=== PATIENT | female | born 1985 | race Two or more races ===

== ENCOUNTER 2017-01-07 22:53 | Observation (INO) | payer OTHER ==
[2017-01-07 23:33] LABS: URINE MUCUS NONE SEEN (Up to 25%)
[2017-01-07 23:36] LABS: BASOPHILS 0.5 % (0.0-2.0); EOSINOPHILS# 0.2 X 10^3uL (0.0-0.4); HEMATOCRIT 39.4 % (36.0-48.0); HEMOGLOBIN 12.7 g/dL (12.0-16.0); LYMPHOCYTES 27.8 % (20.0-40.0); LYMPHOCYTES# 2.4 X 10^3uL (0.8-3.8); MEAN CELL VOLUME 77.9 fL (80.0-100.0); MEAN CORPUS. HGB CONCENTRATION 32.2 g/dL (32.0-36.0); MONOCYTES 5.9 % (2.0-10.0); MONOCYTES# 0.5 X 10^3uL (0.2-1.0); NEUTROPHILS 63.8 % (54.0-75.0); NEUTROPHILS# 5.5 X 10^3uL (2.6-6.7); PLATELET COUNT 383 X 10^3uL (130-440); RED BLOOD COUNT 5.07 X 10^6uL (4.20-6.10); RED CELL DISTRIBUTION WIDTH 13.8 % (11.5-14.5); WHITE BLOOD COUNT 8.6 X 10^3uL (3.9-10.7)
[2017-01-07 23:42] LABS: ALBUMIN 4.1 g/dL (3.5-5.0); ALKALINE PHOSPHATASE 70 U/L (38-126); ALT 23 U/L (9-52); AST 19 U/L (14-36); BILIRUBIN, DIRECT 0.1 mg/dL (0.0-0.4); BILIRUBIN, TOTAL 0.4 mg/dL (0.2-1.3); BLOOD UREA NITROGEN 15 mg/dL (7-17); CALCIUM 9.3 mg/dL (8.4-10.2); CHLORIDE 102 mmol/L (98-107); CREATININE 0.8 mg/dL (0.5-1.0); EST GLOMERULAR FILTRATION RATE > 60 mL/min; GLUCOSE 110 mg/dL (70-100); LIPASE 154 U/L (23-300); POTASSIUM 3.6 mmol/L (3.5-5.1); SODIUM 141 mmol/L (137-145); TOTAL PROTEIN 7.5 g/dL (6.3-8.2)
[2017-01-07] MEDS ORDERED: ONDANSETRON HCL 4 MG/2 ML VIAL ONE (23:47)
[2017-01-08] MEDS ORDERED: ACETAMINOPHEN 325 MG TABLET PO ONE (00:02)
[2017-01-08] MEDS ORDERED: HYDROmorphone HCL 1 MG/ML SYR ONE ×2 (00:03→00:28)
[2017-01-08] MEDS ORDERED: KETOROLAC TROMETHAMINE 30 MG/ML VIAL ONE ×2 (00:10→04:11)
[2017-01-08 00:12] LABS: URINE APPEARANCE CLOUDY; URINE BILIRUBIN NEGATIVE (NEGATIVE); URINE BLOOD 250 Ery/uL (3+) (NEGATIVE); URINE COLOR RED; URINE GLUCOSE NORMAL (NEGATIVE); URINE KETONE NEGATIVE (NEGATIVE); URINE LEUKOCYTE ESTERASE TRACE (NEGATIVE); URINE NITRITE NEGATIVE (NEGATIVE); URINE PROTEIN 100mg/dL (2+) (NEG - TRACE); URINE UROBILINOGEN 0.2mg/dL (Normal) (NEG-1mg/dL)
[2017-01-08 00:13] LABS: URINE TRANSITIONAL EPI CELL 0-5/hpf (<=5/hpf)
[2017-01-08] MEDS ORDERED: ONDANSETRON HCL 4 MG/2 ML VIAL ONE (00:15)
[2017-01-08 00:16] LABS: URINE SQUAMOUS EPITHELIAL CELL 0-5/hpf (<= 15/hpf); URINE WBC 0-4/hpf (0-4/hpf)
[2017-01-08 00:18] LABS: URINE BACTERIA <10 ORGANISMS/hpf (<10/hpf)
[2017-01-08 00:19] LABS: C-REACTIVE PROTEIN 36.8 mg/L (<10.0)
[2017-01-08] MEDS ORDERED: ACETAMINOPHEN 1,000 MG/100 ML VIAL IV ONE (00:48)
--- NOTE | 2017-01-08 01:35 | CT REPORT ---
HISTORY: Abdominal pain COMPARISON: None. TECHNIQUE: This examination was performed using automated exposure control, adjustment of mA or kV according to patient size, and/or use of iterative reconstruction technique. Multiple contiguous axial images were obtained from the lung bases through the pubic symphysis following administration of intravenous con trast. 100cc Isovue 300 contrast. FINDINGS: There are some calcified right hilar lymph nodes likely related to old granulomatous disease. Abdomen/pelvis: There is a punctate calcification in the right hepatic lobe, likely related to old li gamentous disease. The liver is otherwise unremarkable. Gallbladder is unremarkable within limitatio ns of CT evaluation. There are multiple small calcifications in the spleen compatible with old granu lomatous disease. There is no pancreatic mass or ductal dilatation. The adrenal glands are unremarkable. The right an d left kidneys are normal in appearance. No mass or hydronephrosis is noted. Urinary bladder is unr emarkable. The uterus is present. The stomach, small bowel, and large bowel are unremarkable. No significant free fluid is noted. The appendix is normal. There is no free air. There is no mesenteric edema or inflammatory process. Vascular structures of the abdomen and pelvis are unremarkable. No pathologic adenopathy is identified. No suspicious bony lesions are seen. Mult ilevel degenerative disc disease is present in the thoracolumbar spine. IMPRESSION: 1. No acute intra-abdominal abnormality. Normal appendix. 2. Evidence of old calcified granulomatous disease in the chest and abdomen as detailed above. Final Electronic Signature: This report was electronically signed by Sandip Small MD on 01/08/2017 1 :33 AM. [email or web address] /
[2017-01-08] MEDS ORDERED: MAG-AL PLUS XS SUSP 30 ML UDC PO PRN (02:28)
[2017-01-08] MEDS ORDERED: HOME MEDICATION LIST NEEDED 1 EA EACH MISC ONE (02:28)
[2017-01-08] MEDS: NORMAL SALINE 1,000 ML IV SCH ×2 (03:29→12:55)
[2017-01-08] MEDS: ACETAMINOPHEN 325 MG TABLET PO PRN (03:48)
[2017-01-08] MEDS: KETOROLAC TROMETHAMINE 30 MG/ML VIAL IV PRN ×3 (03:58→21:15)
[2017-01-08] MEDS: HYDROmorphone HCL 1 MG/ML SYR IV PRN ×2 (04:23→11:35)
--- NOTE | 2017-01-08 04:45 | ER PHYSICIAN DOCUMENTATION ---
Physician Documentation [facility] Name:Ana Ortiz Age:31 yrs Sex:Female :1985 Arrival Date:01/07/2017 Time:22:53 Bed3 Private MD:Physician, No ED Johny Whitaker Disposition: 01/08/17 02:49 Admit ordered for [place] Dennis. Preliminary diagnosis are Abdominal Cramps - : Severe and Intractable, Menorrhagia. - Bed requested for Medical/Surgical. - Condition is Fair. - Problem is new. - Symptoms have improved. 23 HR OBS Yes HPI: 01/07 23:32 This 31 yrs old Female presents to ER via Private Vehicle with cd complaints of Abdominal Pain. 23:32 The patient presents with abdominal pain in the lower abdomen. Onset: The cd symptoms/episode began/occurred acutely, 2 day(s) ago, and became worse 2 day(s) ago. The symptoms do not radiate. Associated signs and symptoms: Pertinent positives: anorexia, fever, nausea, vaginal bleeding, vomiting, chills, Pertinent negatives: blood in stools, chest pain, diarrhea, dysuria. The symptoms are described as crampy. Modifying factors: The symptoms are alleviated by nothing, the symptoms are aggravated by touching the area. Severity of pain: At its worst the pain was moderate in the emergency department the pain is unchanged. The patient has not experienced similar symptoms in the past. Patient reports she had two periods last month. She started her period 5 days ago with normal vaginal bleeding. The bleeding increased over the past two days, with four golf sized blood clots today. The lower abdominal cramping started two days ago and has steadily gotten worse. She has had a low grade fever, shaking chills, a fine rash on her lower extremities and mild bruising on her thighs. Her PO intake has been poor today, having vomited 3 - 4 times, dry heaves. No hematochezia, hematemesis or melena. She feels lightheaded on standing. Mild SOB due to the elevation. She is from [place]. Historical: - Allergies: PENICILLINS; - Home Meds: 1. valacyclovir 500 mg oral tab - PMHx: CVA; - PSHx: ; - Tetanus: unknown. - Ebola Screening: : Patient negative for fever greater than or equal to 101.5 degrees Fahrenheit, and additional compatible Ebola Virus Disease symptoms. Patient denies exposure to infectious person. Patient denies travel to an Ebola-affected area in the 21 days before illness onset. No symptoms or risks identified at this time. . - Immunization history: Unable to Obtain. - Social history: Smoking status: Patient states was never smoker of tobacco. ROS: 23:39 ENT: Negative for injury, pain, epistaxis and discharge. cd Neck: Negative for injury, pain, stiffness and swelling. Cardiovascular: Negative for chest pain, palpitations, edema and pleuritic pain. Respiratory: Negative for shortness of breath, dyspnea on exertion, cough, sputum production, wheezing, hemoptysis and pleuritic chest pain. 23:39 Back: Negative for injury, pain or muscle spasms. cd MS/Extremity: Negative for injury, deformity, edema, calf tenderness, pain or coldness. Skin: Negative for injury, rash, itching and discoloration. 23:39 Neuro: Negative for headache, weakness, numbness, tingling, and seizure. 23:39 Constitutional: Positive for chills, fever, poor PO intake, Negative for body aches. 23:39 Abdomen/GI: Positive for abdominal pain, nausea, vomiting, abdominal cramps, anorexia, Negative for diarrhea, abdominal distension, hematemesis, black/tarry stool, rectal pain, rectal bleeding. 23:39 : Positive for pelvic pain, vaginal bleeding, has been using tampons ...used 4 pads today., Negative for urinary symptoms, hematuria, flank pain, burning with urination, foul smelling urine. 23:39 All other systems are negative. Exam: 23:40 Constitutional: The patient appears alert, awake, non-diaphoretic, non-toxic, well cd developed, well nourished, anxious, obese, in obvious distress, mildly distressed. 23:40 Eyes: Pupils: equal, round, and reactive to light and accomodation, Extraocular movements: intact throughout, Conjunctiva: pink. 23:40 ENT: Mouth: Lips: dry, Oral mucosa: pink and intact, dry, Posterior pharynx: is normal. 23:40 Neck: ROM/movement: is normal, is supple. 23:40 Cardiovascular: Rate: tachycardic, actual rate is 109 bpm, Rhythm: regular, Pulses: no pulse deficits are appreciated, Heart sounds: normal, Edema: is not appreciated. 23:40 Respiratory: the patient does not display signs of respiratory distress, Respirations: normal, no acute changes, Breath sounds: are normal, clear throughout. 23:40 Abdomen/GI: Inspection: abdomen appears normal, Bowel sounds: normal, active, Palpation: moderate abdominal tenderness, in the suprapubic area, right upper quadrant and right lower quadrant, mass, is not appreciated, rebound tenderness, is not appreciated, voluntary guarding, is not appreciated, involuntary guarding, is not appreciated, no appreciated organomegaly, Indicators: McBurney's point is not tender, Bartholomew's sign is positive. 23:40 Back: CVA tenderness, is absent. 23:40 Musculoskeletal/extremity: Exam is negative for acute changes. 23:40 Skin: rash a mild rash is noted, on the right leg and left leg, occasional bruise that are small on the anterior thighs. 23:40 Neuro: Exam negative for acute changes. Vital Signs: 02:30 BP 136 / 78; Pulse 82; Resp 15; Pulse Ox 98% 2 lpm ; Pain 3/10; mk4 23:05 BP 172 / 111; Pulse 109; Resp 15; Temp 99.0; Pulse Ox 96% ; Weight 113.4 kg; Height 5 mk4 ft. 4 in. (162.56 cm); Pain 6/10; 23:24 BP 182 / 133; Pulse 117; Resp 28; Pulse Ox 96% on R/A; Pain 8/10; rs 23:50 BP 178 / 72; Pulse 105; Resp 24; Pulse Ox 96% on R/A; Pain 8/10; rs 05/ 00:10 BP 137 / 77; Pulse 83; Resp 24; Pulse Ox 96% on 2 lpm NC; Pain 9/10; rs 00:30 BP 130 / 95; Pulse 78; Resp 20; Pulse Ox 98% on 2 lpm NC; Pain 8/10; rs 03:30 BP 138 / 87; Pulse 84; Resp 16; Temp 98.5; Pulse Ox 99% on 2 lpm NC; Pain 3/10; mk4 01/07 23:05 Body Mass Index 42.91 (113.40 kg, 162.56 cm) mk4 Wheelwright Coma Score: 01/07 23:40 Eye Response: spontaneous(4). Verbal Response: oriented(5). Motor Response: obeys cd commands(6). Total: 15. MDM: 23:00 Differential diagnosis: appendicitis, bowel obstruction, cholecystitis, Cholelithiasis, cd diverticulitis, Dysmenorrhea, Ectopic , Irritable bowel syndrome, Mesenteric ischemia or infarction, non-specific abd pain, Ovarian Torsion, Pyelonephritis, Ureterolithiasis, urinary tract infection. Data reviewed: vital signs, nurses notes, old medical records, and as a result, I will continue to observe the patient, administer IV fluids, NS bolus, NS maintenence, prescribe pain medication, acetaminophen, Dilaudid, Toradol. 23:05 Data interpreted: Pulse oximetry: on room air is 98 %. Interpretation: normal. cd 23:30 Patient medically screened. 01/08 02:00 Response to treatment: the patient's symptoms have mildly improved after treatment, and cd as a result, I will admit patient. 02:20 Physician consultation: Dr. Dave BEE was called at 02:10, was contacted at 02:10, regarding admission, to the floor, consult, patient's condition, need to come to ED to see patient, need to evaluate the patient as soon as possible, and will see patient in ED, immediately. 02:59 Counseling: I had a detailed discussion with the patient and/or guardian regarding: the cd historical points, exam findings, and any diagnostic results supporting the discharge/admit diagnosis, lab results, radiology results, the need for further work-up and treatment in the hospital, risk of leaving the Emergency Department, without completed treatment. 01/07 23:42 Order name: CBC AUTO DIF, MDIF/RMOR IF IND; Complete Time: 00:30 EDMS 01/07 23:43 Interpretation: Normal. 01/07 23:43 Order name: BASIC METABOLIC PANEL; Complete Time: 00:30 EDMS 01/07 23:44 Interpretation: Normal. 01/07 23:43 Order name: HEPATIC PANEL; Complete Time: 00:30 EDMS 01/07 23:44 Interpretation: Normal. 01/07 23:43 Order name: LIPASE; Complete Time: 00:30 EDMS 01/07 23:44 Interpretation: Normal. 01/08 00:06 Order name: LACTATE; Complete Time: 00:07 EDMS 01/08 00:07 Interpretation: Normal: LACTATE 1.3. 01/08 00:08 Order name: PROTIME/INR; Complete Time: 00:30 EDPA 01/08 00:12 Interpretation: Normal. 01/08 00:09 Order name: HCG, SERUM; Complete Time: 00:30 EDPA 01/08 00:12 Interpretation: Normal. 01/08 00:17 Order name: UA W/ MICRO -CULTURE IF IND; Complete Time: 00:30 EDPA 01/08 00:30 Interpretation: Normal Except: URINE PROTEIN 100mg/dL (2+); URINE BLOOD 250 Marcos/uL cd (3+); URINE RBC >100/hpf; Patient on her period. 01/08 00:19 Order name: C-REACTIVE PROTEIN; Complete Time: 00:30 EDPA 01/08 00:30 Interpretation: Abnormal: C-REACTIVE PROTEIN 36.8; Elevated. 01/08 06:47 Order name: CBC AUTO DIF, MDIF/RMOR IF IND; Complete Time: 11:06 EDPA 01/08 07:01 Order name: BASIC METABOLIC PANEL; Complete Time: 11:06 EDPA 01/08 11:48 Order name: UA W/ MICRO -CULTURE IF IND EDPA 01/08 13:15 Order name: THYROID STIMULATING HORMONE EDPA 01/08 23:31 Order name: BLOOD CULTURE EDPA 01/09 06:44 Order name: BLOOD CULTURE EDPA 01/09 06:50 Order name: COMPREHENSIVE METABOLIC PANEL EDPA 01/09 06:50 Order name: LIPASE EDPA 01/09 07:00 Order name: CBC AUTO DIF, MDIF/RMOR IF IND EDPA 01/09 07:30 Order name: URINE CULTURE EDPA 01/09 09:01 Order name: HEPATITIS B SURFACE ANTIGEN EDPA 01/09 09:15 Order name: RPR EDPA 01/08 01:08 Order name: CAT SCAN; ABD/PEL W 72097; Complete Time: 03:01 EDPA 01/08 03:01 Interpretation: Normal: Report reviewed by me. 01/08 00:14 Order name: Oxygen; Complete Time: 00:37 cd Dispensed Medications: 01/07 23:15 Drug: NS 0.9% 2000 ml; Volume: 2000 ml; Route: IV; Rate: bolus; Site: left antecubital; rs Delivery: [place] [facility]; 01/08 01:30 Follow up: Response: No adverse reaction; IV Status: Completed infusion; Infusion mk4 discontinued; IV converted to saline lock; IV Intake: 2000ml 01/07 23:45 Drug: Zofran 4 mg; Route: IVP; Rate: 2 mg/min; Infused Over: 2 mins; Site: left rs antecubital; 01/08 00:57 Follow up: Response: Nausea unchanged rs 00:00 Drug: Dilaudid 0.5 mg; Route: IVP; Rate: 0.25 mg/min; Infused Over: 2 mins; Site: left rs antecubital; 00:15 Follow up: Response: Pain is unchanged, physician notified rs 00:10 Drug: Toradol 30 mg; Route: IVP; Rate: 15 mg/min; Infused Over: 2 mins; Site: left rs antecubital; 00:20 Follow up: Response: Pain is unchanged, physician notified rs 00:15 Drug: Zofran 4 mg; Route: IVP; Rate: 2 mg/min; Infused Over: 2 mins; Site: left rs antecubital; 01:11 Follow up: Response: No adverse reaction; Nausea is decreased mk4 00:28 Drug: Dilaudid 1 mg; Route: IVP; Rate: 0.5 mg/min; Infused Over: 2 mins; Site: left rs antecubital; 00:30 Follow up: Response: Pain is unchanged, physician notified rs 00:37 CANCELLED (Physician Discretion): Tylenol 975 mg PO once rs 00:45 Drug: Ofirmev ; MAX of 1000 mg, give 20 mg/kg; Volume: 100 ml; Route: IV; Rate: 1000 mk4 bolus; Infused Over: 15 mins; Site: left antecubital; Delivery: Pump; 01:09 Follow up: Response: No adverse reaction; Pain is decreased; IV Status: Completed mk4 infusion; Infusion discontinued Signatures: Juanita Enciso RN RN rs Daley, Chris, MD MD cd King, Melody mk4
--- NOTE | 2017-01-08 04:45 | ER NURSING DOCUMENTATION ---
Nurse's Notes [facility] Name:Ana Ortiz Age:31 yrs Sex:Female :1985 Arrival Date:01/07/2017 Time:22:53 Bed3 Private MD:Physician, No Diagnosis:Abdominal Cramps-: Severe and Intractable;Menorrhagia Presentation: 01/07 23:00 Acuity: HENRIETTA 2 rs 23:05 Presenting complaint: Patient states: Menses started 5 days ago, started having rs cramping pain 3 days ago which has gotten worse each day, flow is much heavier than her nml, bright red, passing ping pong ball sized clots, taking "a lot of ibuprofen". Possible fever this evening, shaking chills now, lightheaded when she stands, HOLCOMB, and N/V 3 or 4 times today. Traveling from [place] with friends. Hx of stroke at 18 y.o., has a new rash on her lower legs and bruising on her thighs. Transition of care: patient was not received from another setting of care. Notified ED Physician of patient's arrival and CC Dr. Dave notified. 23:05 Method Of Arrival: Private Vehicle rs Triage Assessment: 23:00 General: Appears distressed, uncomfortable, well developed, well nourished, well rs groomed, severe shaking, nausea and pain. "I feel very bad". . Behavior is anxious, cooperative, pleasant, restless, Reports chills for fever for feeling ill for fatigue for 12-24 hours. Neuro: No deficits noted. Level of Consciousness is awake, alert. Cardiovascular: Capillary refill < 3 seconds Pulses are 2+ in left radial artery Reports Diaphoresis fatigue, lightheadedness, Nausea Vomiting Chest pain is denied. Respiratory: Respiratory effort is even, unlabored, Respiratory pattern is regular, symmetrical, Breath sounds are clear bilaterally. Reports cough that is non-productive, the patient has mild shortness of breath Denies shortness of breath at rest. GI: Abdomen is obese, Pt is actively vomiting undigested food, Last BM was 2016. at 08:00. Bowel sounds present X 4 quads. Abd is soft Abdomen is tender to palpation in epigastric area and suprapubic area Reports lower abdominal pain, upper abdominal pain, nausea, Pain is 8 out of 10 on a pain scale. vomiting. : No deficits noted. Urine is clear, Reports cramping pain vaginal bleeding that is bright red with clots heavy flow Denies burning with urination, urinary frequency, urgency. Derm: No deficits noted. Skin is dry, Skin is brown, Skin temperature is warm Rash noted that is on bilat lower legs Bruising that is on bilat thighs without injury. Reports since Sunday (3 days).. 23:31 Pain: Complains of pain in midline abdomen from suprapubic to epigastric Pain currently rs is 5 out of 10 on a pain scale. At worst was 8 out of 10 on a pain scale. Historical: - Allergies: PENICILLINS; - Home Meds: 1. valacyclovir 500 mg oral tab - PMHx: CVA; - PSHx: ; - Tetanus: unknown. - Ebola Screening: : Patient negative for fever greater than or equal to 101.5 degrees Fahrenheit, and additional compatible Ebola Virus Disease symptoms. Patient denies exposure to infectious person. Patient denies travel to an Ebola-affected area in the 21 days before illness onset. No symptoms or risks identified at this time. . - Immunization history: Unable to Obtain. - Social history: Smoking status: Patient states was never smoker of tobacco. Screenin/29 00:47 Infectious Disease Risk None. Abuse screen: Denies threats or abuse. Nutritional rs screening: No deficits noted. Assessment: 01/07 23:09 See Triage Assessment done by same RN. 4 01/08 00:52 Reassessment: Patient appears in no apparent distress at this time. Pain: Pain rs currently is 3 out of 10 on a pain scale. Vital Signs: 01/07 02:30 BP 136 / 78; Pulse 82; Resp 15; Pulse Ox 98% 2 lpm ; Pain 3/10; mk4 23:05 BP 172 / 111; Pulse 109; Resp 15; Temp 99.0; Pulse Ox 96% ; Weight 113.4 kg; Height 5 mk4 ft. 4 in. (162.56 cm); Pain 6/10; 23:24 BP 182 / 133; Pulse 117; Resp 28; Pulse Ox 96% on R/A; Pain 8/10; rs 23:50 BP 178 / 72; Pulse 105; Resp 24; Pulse Ox 96% on R/A; Pain 8/10; rs 01/08 00:10 BP 137 / 77; Pulse 83; Resp 24; Pulse Ox 96% on 2 lpm NC; Pain 9/10; rs 00:30 BP 130 / 95; Pulse 78; Resp 20; Pulse Ox 98% on 2 lpm NC; Pain 8/10; rs 03:30 BP 138 / 87; Pulse 84; Resp 16; Temp 98.5; Pulse Ox 99% on 2 lpm NC; Pain 3/10; mk4 01/07 23:05 Body Mass Index 42.91 (113.40 kg, 162.56 cm) 4 Quinton Coma Score: 01/07 23:40 Eye Response: spontaneous(4). Verbal Response: oriented(5). Motor Response: obeys cd commands(6). Total: 15. ED Course: 22:50 Door closed. Noise minimized. Lights dimmed. Verbal reassurance given. Diet: Patient is rs NPO. 22:54 Patient arrived in ED. em2 22:55 Physician, No is Private Physician. em2 23:00 Inserted peripheral IV: 20 gauge in left antecubital area and blood collected. rs 23:00 Labs drawn. Urine collected. rs 23:05 Sobeida Khanna is Primary Nurse. 4 23:05 Notified ED Physician of patient's arrival and chief complaint. Dr. Dave notified. Arm rs band placed on Bed in low position Call Light in Reach HOB Elevated Side rails up x1. 23:10 Labs ordered per protocol. Urine obtained. rs 23:23 Triage completed. rs 23:30 Johny Dave MD is Attending Physician. cd 01/08 00:10 Oxygen Oxygen administration via nasal cannula @ 2L/min. rs 00:15 Assist Provider Assist provider with pelvic exam: Set up pelvic tray. Performed by rs Johny Dave MD. 00:47 Valuables Remains with patient. Pulse Ox - RN Monitoring Only NIBP On - RN Monitoring rs Only. 01:[address] ca 01:08 CAT SCAN; ABD/PEL W [id number] In Process Unspecified. EDMS 01:[address]. ca 01:28 CAT SCAN; ABD/PEL W [id number] Sent. ca 02:47 [place] Dennis MD is Admitting Physician. cd Administered Medications: 01/07 23:15 Drug: NS 0.9% 2000 ml; Volume: 2000 ml; Route: IV; Rate: bolus; Site: left antecubital; rs Delivery: [place] [facility]; 01/08 01:30 Follow up: Response: No adverse reaction; IV Status: Completed infusion; Infusion mk4 discontinued; IV converted to saline lock; IV Intake: 2000ml 01/07 23:45 Drug: Zofran 4 mg; Route: IVP; Rate: 2 mg/min; Infused Over: 2 mins; Site: left rs antecubital; 01/08 00:57 Follow up: Response: Nausea unchanged rs 00:00 Drug: Dilaudid 0.5 mg; Route: IVP; Rate: 0.25 mg/min; Infused Over: 2 mins; Site: left rs antecubital; 00:15 Follow up: Response: Pain is unchanged, physician notified rs 00:10 Drug: Toradol 30 mg; Route: IVP; Rate: 15 mg/min; Infused Over: 2 mins; Site: left rs antecubital; 00:20 Follow up: Response: Pain is unchanged, physician notified rs 00:15 Drug: Zofran 4 mg; Route: IVP; Rate: 2 mg/min; Infused Over: 2 mins; Site: left rs antecubital; 01:11 Follow up: Response: No adverse reaction; Nausea is decreased mk4 00:28 Drug: Dilaudid 1 mg; Route: IVP; Rate: 0.5 mg/min; Infused Over: 2 mins; Site: left rs antecubital; 00:30 Follow up: Response: Pain is unchanged, physician notified rs 00:37 CANCELLED (Physician Discretion): Tylenol 975 mg PO once rs 00:45 Drug: Ofirmev ; MAX of 1000 mg, give 20 mg/kg; Volume: 100 ml; Route: IV; Rate: 1000 mk4 bolus; Infused Over: 15 mins; Site: left antecubital; Delivery: Pump; 01:09 Follow up: Response: No adverse reaction; Pain is decreased; IV Status: Completed mk4 infusion; Infusion discontinued Intake: 01:30 IV: 2000ml; Total: 2000ml. mk4 Outcome: 01:01 Report given to Peyton RN rs 02:49 Decision to Admit by Provider. cd 03:30 Admitted to Med/surg accompanied by nurse. mk4 03:30 Condition: improved 03:30 Report given to Andrés RN 03:30 Discharge Assessment: Patient awake and alert. 04:45 Patient left the ED. mk4 Signatures: Dispatcher [employer] Juanita Arrington, Johny Marx RN, MD MD cd Meinking-reg, Ellen-reg emRamesh Mcduffie, Sobeida Whipple4
[2017-01-08 06:42] LABS: BASOPHILS 0.6 % (0.0-2.0); EOSINOPHILS 2.4 % (0.0-6.0); EOSINOPHILS# 0.2 X 10^3uL (0.0-0.4); HEMATOCRIT 35.2 % (36.0-48.0); HEMOGLOBIN 11.3 g/dL (12.0-16.0); LYMPHOCYTES 32.9 % (20.0-40.0); LYMPHOCYTES# 2.4 X 10^3uL (0.8-3.8); MEAN CELL VOLUME 78.4 fL (80.0-100.0); MEAN CORPUSCULAR HEMOGLOBIN 25.1 pg (29.0-35.0); MEAN PLATELET VOLUME 7.8 fL (7.4-10.4); MONOCYTES 6.6 % (2.0-10.0); MONOCYTES# 0.5 X 10^3uL (0.2-1.0); NEUTROPHILS 57.5 % (54.0-75.0); NEUTROPHILS# 4.2 X 10^3uL (2.6-6.7); PLATELET COUNT 307 X 10^3uL (130-440); RED BLOOD COUNT 4.49 X 10^6uL (4.20-6.10); RED CELL DISTRIBUTION WIDTH 13.5 % (11.5-14.5); WHITE BLOOD COUNT 7.3 X 10^3uL (3.9-10.7)
[2017-01-08 06:56] LABS: BLOOD UREA NITROGEN 13 mg/dL (7-17); CALCIUM 8.3 mg/dL (8.4-10.2); CHLORIDE 106 mmol/L (98-107); CREATININE 0.7 mg/dL (0.5-1.0); EST GLOMERULAR FILTRATION RATE > 60 mL/min; GLUCOSE 95 mg/dL (70-100); POTASSIUM 3.8 mmol/L (3.5-5.1); SODIUM 140 mmol/L (137-145)
[2017-01-08] MEDS: ONDANSETRON HCL 4 MG/2 ML VIAL IV PRN ×2 (08:29→21:15)
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
[2017-01-08 11:42] LABS: URINE MUCUS NONE SEEN (Up to 25%); URINE WBC NONE SEEN (0-4/hpf)
[2017-01-08 11:46] LABS: URINE APPEARANCE CLEAR; URINE BILIRUBIN NEGATIVE (NEGATIVE); URINE BLOOD 50 Ery/uL (2+) (NEGATIVE); URINE COLOR YELLOW; URINE GLUCOSE NORMAL (NEGATIVE); URINE KETONE NEGATIVE (NEGATIVE); URINE LEUKOCYTE ESTERASE NEGATIVE (NEGATIVE); URINE NITRITE NEGATIVE (NEGATIVE); URINE PROTEIN NEGATIVE (NEG - TRACE); URINE UROBILINOGEN 0.2mg/dL (Normal) (NEG-1mg/dL)
[2017-01-08 11:47] LABS: URINE BACTERIA NONE SEEN (<10/hpf); URINE SQUAMOUS EPITHELIAL CELL 0-5/hpf (<= 15/hpf)
[2017-01-08] MEDS ORDERED: LIDOCAINE VISCOUS 2% PO ONE (12:00)
[2017-01-08] MEDS ORDERED: [UNRECOGNIZED DRUG - OTHER] PO ONE (12:00)
[2017-01-08] MEDS ORDERED: DIPHENHYDRAMINE PO ONE (12:00)
[2017-01-08] MEDS ORDERED: LIDOCAINE/PRILOCAINE CREAM 5 GM TUBE TOPICAL ONE ×2 (12:11→12:21)
[2017-01-08] MEDS: FAMOTIDINE IN SALINE, ISO-OSM 20 MG/50 ML PIGGYBACK IV SCH ×2 (12:28→21:43)
[2017-01-08] MEDS: METHYLPREDNISOLONE SOD 125 MG/2 ML VIAL IV SCH ×2 (12:54→21:42)
[2017-01-08] MEDS ORDERED: LIDOCAINE/EPI 1% 1:100,000 20 ML VIAL SUBCUT ONE (13:43)
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
[2017-01-09] MEDS: NORMAL SALINE 1,000 ML IV SCH ×2 (00:49→15:51)
[2017-01-09] MEDS: METHYLPREDNISOLONE SOD 125 MG/2 ML VIAL IV SCH ×3 (05:00→21:23)
[2017-01-09] MEDS: KETOROLAC TROMETHAMINE 30 MG/ML VIAL IV PRN ×2 (05:26→12:16)
[2017-01-09] MEDS: HYDROmorphone HCL 1 MG/ML SYR IV PRN ×3 (05:45→23:00)
[2017-01-09] MEDS ORDERED: POLYETHYLENE GLYCOL 3350 17 GM POWD.PACK PO ONE (05:50)
[2017-01-09 06:38] LABS: BASOPHILS 0.1 % (0.0-2.0); HEMATOCRIT 39.5 % (36.0-48.0); HEMOGLOBIN 12.9 g/dL (12.0-16.0); LYMPHOCYTES 8.8 % (20.0-40.0); LYMPHOCYTES# 0.9 X 10^3uL (0.8-3.8); MEAN CELL VOLUME 78.3 fL (80.0-100.0); MEAN CORPUS. HGB CONCENTRATION 32.7 g/dL (32.0-36.0); MEAN CORPUSCULAR HEMOGLOBIN 25.6 pg (29.0-35.0); MONOCYTES 0.5 % (2.0-10.0); NEUTROPHILS# 8.9 X 10^3uL (2.6-6.7); PLATELET COUNT 377 X 10^3uL (130-440); RED BLOOD COUNT 5.04 X 10^6uL (4.20-6.10); RED CELL DISTRIBUTION WIDTH 13.7 % (11.5-14.5); WHITE BLOOD COUNT 9.8 X 10^3uL (3.9-10.7)
[2017-01-09 06:45] LABS: A/G RATIO 1.1; ALKALINE PHOSPHATASE 62 U/L (38-126); ALT 29 U/L (9-52); AST 19 U/L (14-36); BILIRUBIN, TOTAL 0.5 mg/dL (0.2-1.3); BLOOD UREA NITROGEN 11 mg/dL (7-17); CALCIUM 8.5 mg/dL (8.4-10.2); CHLORIDE 111 mmol/L (98-107); CREATININE 0.7 mg/dL (0.5-1.0); EST GLOMERULAR FILTRATION RATE > 60 mL/min; GLUCOSE 119 mg/dL (70-100); LIPASE 133 U/L (23-300); POTASSIUM 4.1 mmol/L (3.5-5.1); SODIUM 142 mmol/L (137-145); TOTAL PROTEIN 7.6 g/dL (6.3-8.2)
[2017-01-09 07:00] LABS: NEUTROPHILS 90.6 % (54.0-75.0)
[2017-01-09] MEDS: ONDANSETRON HCL 4 MG/2 ML VIAL IV PRN (07:02)
[2017-01-09 09:15] LABS: RPR NONREACTIVE
[2017-01-09] MEDS ORDERED: WATER IRRIG 1,000 ML BOTTLE ONE (09:16)
[2017-01-09] MEDS: FAMOTIDINE IN SALINE, ISO-OSM 20 MG/50 ML PIGGYBACK IV SCH ×2 (09:55→21:24)
[2017-01-09] MEDS: ACETAMINOPHEN 325 MG TABLET PO PRN (10:07)
[2017-01-09] MEDS ORDERED: NORMAL SALINE 1,000 ML IV SCH (17:43)
--- NOTE | 2017-01-09 17:47 | PROGRESS NOTE: IM APSO ---
Assessment and Plan - Date of Encounter Date of Encounter: 01/09/17 (1) RUQ abdominal pain Status: Acute Assessment and plan: RUQ abd ultrasound pending. Trial of advancing clear liquid diet to BRAT diet. Etiology remains unclear. Current Visit: Yes (2) Epigastric abdominal pain Status: Acute Current Visit: Yes (3) Rash and nonspecific skin eruption Status: Acute Assessment and plan: R/O erythema nodosum with associated diff dx. Lab and bx pending. Current Visit: Yes - Time Spent With Patient Total time spent with greater than 50% in coordination of care (as documented) at patient's floor/unit and/or counseling patient: IM: PN Subjective Interval history: Persistent poor appetite, only tolerating small amts of clear liquids, and even then will experience nausea. Will do trial of BRAT diet. Persistent epigastric and RUQ abd pain. No V/D/C, melena, hematochezia, or foul flatus. No dysuria. Negative work up so far but await further labs. IM: PN Objective Exam - I&O/Vital Signs I&O: Intake & Output 01/09/17 01/09/17 01/09/17 05:59 13:59 21:59 Intake Total 1861 Output Total 200 Balance 1661 Weight 125.5 kg Intake: IV 1421 Right Hand 1421 Oral 440 Output: Urine 200 Other: Urine Appearance Clear Clear Urine Color Yellow Yellow Voiding Method Toilet Toilet # Voids 1 Vital Signs: Last Vital Signs Temp 36.9 C 01/09/17 15:00 Pulse 82 01/09/17 15:00 Resp 16 01/09/17 15:00 BP 136/68 01/09/17 15:00 Pulse Ox 93 01/09/17 15:00 Oxygen Flow Rate 0 Oxygen Delivery Method Room Air - Constitutional General appearance: Present: morbidly obese - Respiratory Respiratory exam: Present: clear. Absent: rales - Cardiovascular Cardiovascular exam: Present: RRR. Absent: systolic murmur - GI/Abdominal GI/Abdominal exam: Present: normal bowel sounds, tenderness. Absent: organomegaly Additional comments: RUQ/epigastric mod severe, with guarding. - Extremities Exam Extremities exam: Absent: calf tenderness, edema, tenderness - Skin Skin exam: Present: other Additional comments: bilat ant beltran erythema has faded dramatically, but there are some residual nodules bilaterally reminiscent of erythema nodosum. - Lab Labs: Laboratory Last Values WBC 9.8 X 10^3uL (3.9-10.7) 01/09/17 06:10 RBC 5.04 X 10^6uL (4.20-6.10) 01/09/17 06:10 Hgb 12.9 g/dL (12.0-16.0) 01/09/17 06:10 Hct 39.5 % (36.0-48.0) 01/09/17 06:10 MCV 78.3 fL (80.0-100.0) L 01/09/17 06:10 MCH 25.6 pg (29.0-35.0) L 01/09/17 06:10 MCHC 32.7 g/dL (32.0-36.0) 01/09/17 06:10 RDW 13.7 % (11.5-14.5) 01/09/17 06:10 Plt Count 377 X 10^3uL (130-440) 01/09/17 06:10 MPV 8.0 fL (7.4-10.4) 01/09/17 06:10 Neutrophils % 90.6 % (54.0-75.0) H 01/09/17 06:10 Lymphocytes % 8.8 % (20.0-40.0) L 01/09/17 06:10 Eosinophils % 0.0 % (0.0-6.0) 01/09/17 06:10 Basophils % 0.1 % (0.0-2.0) 01/09/17 06:10 Neutrophils # 8.9 X 10^3uL (2.6-6.7) H 01/09/17 06:10 Lymphocytes # 0.9 X 10^3uL (0.8-3.8) 01/09/17 06:10 Monocytes 0.5 % (2.0-10.0) L 01/09/17 06:10 Monocytes # 0.0 X 10^3uL (0.2-1.0) L 01/09/17 06:10 Eosinophils # 0.0 X 10^3uL (0.0-0.4) 01/09/17 06:10 Basophils # 0.0 X 10^3uL (0.0-0.1) 01/09/17 06:10 PT 13.6 sec (13.0-16.6) 01/07/17 23:19 INR 1.0 01/07/17 23:19 Sodium 142 mmol/L (137-145) 01/09/17 06:10 Potassium 4.1 mmol/L (3.5-5.1) 01/09/17 06:10 Chloride 111 mmol/L (98-107) H 01/09/17 06:10 Carbon Dioxide 24 mmol/L (22-30) 01/09/17 06:10 BUN 11 mg/dL (7-17) 01/09/17 06:10 Creatinine 0.7 mg/dL (0.5-1.0) 01/09/17 06:10 GFR Calculation > 60 mL/min 01/09/17 06:10 Glucose 119 mg/dL (70-100) H 01/09/17 06:10 Lactic Acid 1.3 mmol/L (0.7-2.1) 01/07/17 23:19 Calcium 8.5 mg/dL (8.4-10.2) 01/09/17 06:10 Total Bilirubin 0.5 mg/dL (0.2-1.3) 01/09/17 06:10 Direct Bilirubin 0.1 mg/dL (0.0-0.4) 01/07/17 23:19 AST 19 U/L (14-36) 01/09/17 06:10 ALT 29 U/L (9-52) 01/09/17 06:10 Alkaline Phosphatase 62 U/L (38-126) 01/09/17 06:10 C-Reactive Protein 36.8 mg/L (<10.0) H 01/07/17 23:19 Total Protein 7.6 g/dL (6.3-8.2) 01/09/17 06:10 Albumin 4.0 g/dL (3.5-5.0) 01/09/17 06:10 Albumin/Globulin Ratio 1.1 01/09/17 06:10 Lipase 133 U/L (23-300) 01/09/17 06:10 TSH 3.29 uIU/mL (0.47-4.68) 01/08/17 06:05 Serum , Qual Negative 01/07/17 23:19 Urine Color Yellow 01/08/17 11:29 Urine Appearance Clear 01/08/17 11:29 Urine pH 7.0 (5-7) 01/08/17 11:29 Ur Specific [place] 1.010 (0.001-1.035) 01/08/17 11: Urine Protein Negative (NEG - TRACE) 01/08/17 11: Urine Ketones Negative (NEGATIVE) 01/08/17 11:29 Urine Blood 50 sanaz/ul (2+) (NEGATIVE) A 01/08/17 11:29 Urine Nitrate Negative (NEGATIVE) 01/08/17 11: Urine Bilirubin Negative (NEGATIVE) 01/08/17 11: Urine Urobilinogen 0.2mg/dl (normal) (NEG-1mg/dL) 01/08/17 11: Ur Leukocyte Esterase Negative (NEGATIVE) 01/08/17 11:29 Urine RBC 5-10/hpf (0-5/hpf) A 01/08/17 11:29 Urine WBC None seen (0-4/hpf) 01/08/17 11:29 Ur Squamous Epith Cells 0-5/hpf (<= 15/hpf) 01/08/17 11:29 Ur Transition Epith Cell 0-5/hpf (<=5/hpf) 01/07/17 23:20 Urine Bacteria None seen (<10/hpf) 01/08/17 11: Urine Mucus None seen (Up to 25%) 01/08/17 11:29 Urine Glucose Normal (NEGATIVE) 01/08/17 11:29 RPR Nonreactive 01/09/17 06:10 Hep Bs Antigen Negative (NEGATIVE) 01/09/17 06:10
[2017-01-09] MEDS ORDERED: MAG-AL PLUS XS SUSP 30 ML UDC ONE (18:44)
[2017-01-09] MEDS ORDERED: PHENOBARB/HYOSCY/ATROPINE/SCOP 16.2 MG/5 ML SYR ONE (18:45)
[2017-01-09] MEDS ORDERED: LIDOCAINE VISCOUS 2% 15 ML UDC ONE (18:45)
[2017-01-09] MEDS: LORazepam 2 MG/ML INJ IV SCH (23:41)
[2017-01-10] MEDS: LORazepam 2 MG/ML INJ IV SCH ×3 (03:26→08:38)
[2017-01-10] MEDS: METHYLPREDNISOLONE SOD 125 MG/2 ML VIAL IV SCH (03:26)
[2017-01-10 06:50] LABS: HEMATOCRIT 34.3 % (36.0-48.0); LYMPHOCYTES 6.9 % (20.0-40.0); LYMPHOCYTES# 0.7 X 10^3uL (0.8-3.8); MEAN CELL VOLUME 78.4 fL (80.0-100.0); MEAN CORPUSCULAR HEMOGLOBIN 25.1 pg (29.0-35.0); MEAN PLATELET VOLUME 7.9 fL (7.4-10.4); MONOCYTES 1.4 % (2.0-10.0); MONOCYTES# 0.1 X 10^3uL (0.2-1.0); NEUTROPHILS# 8.7 X 10^3uL (2.6-6.7); PLATELET COUNT 305 X 10^3uL (130-440); RED BLOOD COUNT 4.37 X 10^6uL (4.20-6.10); WHITE BLOOD COUNT 9.5 X 10^3uL (3.9-10.7)
[2017-01-10 06:51] LABS: NEUTROPHILS 91.7 % (54.0-75.0)
[2017-01-10 06:58] VITALS: BP 121/67; PULSE 66; RESP 14; TEMP 98.3; O2SAT 94
[2017-01-10 06:59] LABS: A/G RATIO 1.1; ALBUMIN 3.3 g/dL (3.5-5.0); ALKALINE PHOSPHATASE 48 U/L (38-126); ALT 30 U/L (9-52); AST 17 U/L (14-36); BILIRUBIN, TOTAL 0.3 mg/dL (0.2-1.3); BLOOD UREA NITROGEN 14 mg/dL (7-17); CALCIUM 7.9 mg/dL (8.4-10.2); CHLORIDE 114 mmol/L (98-107); CREATININE 0.7 mg/dL (0.5-1.0); EST GLOMERULAR FILTRATION RATE > 60 mL/min; GLUCOSE 133 mg/dL (70-100); POTASSIUM 4.4 mmol/L (3.5-5.1); SODIUM 142 mmol/L (137-145); TOTAL PROTEIN 6.4 g/dL (6.3-8.2)
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
[2017-01-10] MEDS ORDERED: LORazepam 2 MG/ML INJ IV ONE (08:37)
[2017-01-10] MEDS: FAMOTIDINE IN SALINE, ISO-OSM 20 MG/50 ML PIGGYBACK IV SCH (08:55)
--- NOTE | 2017-01-10 08:57 | DC SUMMARY: IM Note ---
Discharge Summary: IM/Peds Provider: Date of Admission: 01/08/17 Admitting Provider: KRUNAL MONTEIRO MD Attending Provider: TRAN CRUZ Discharging Provider: TRAN CRUZ Primary Care Provider: Discharge Date: 01/10/17 - Diagnosis (1) Abdominal pain Status: Acute Qualifiers: Abdominal location: generalized Qualified Code(s): R10.84 - Generalized abdominal pain (2) Rash and nonspecific skin eruption Status: Acute (3) Proteinuria Status: Acute (4) H/O stroke without residual deficits Status: Chronic - Time Spent with Patient Total time spent providing and/or coordinating discharge services: Discharge Overall discharge status: patient is not back to baseline Disposition: [facility] Discharge Summary Data - Medication History Medication History: Home Medications Valacyclovir [Valtrex*] 500 mg PO DAILY 01/08/17 Inpatient Medications 01/08/17 10:45 Famotidine in Saline, Iso-Osm [Pepcid Injection] 20 mg IV BID 01/08/17 11:28 proMETHazine HCL [Phenergan] 12.5 mg PO Q6H PRN 01/09/17 17:43 Normal Saline [Sodium Chloride 0.9% 1000 ml] 1,000 ml IV CONT 01/10/17 09:00 LORazepam [Ativan] 1 mg IV ONCE@0900 Procedures and tests throughout hospitalization: Completed Lab Orders 01/08/17 06:05 TSH [THYROID STIMULATING HORMONE] [CHEM] Routine 01/08/17 11:29 UA W/ MICRO -CULTURE IF IND [URINE] Urgent 01/09/17 06:10 CBC AUTO DIF, MDIF/RMOR IF IND [HEM] AMDRAW COMPREHENSIVE METABOLIC PANEL [CHEM] AMDRAW HEPATITIS B SURFACE ANTIGEN [CHEM] Routine LIPASE [CHEM] AMDRAW RPR [SER] Routine 01/10/17 06:05 CBC AUTO DIF, MDIF/RMOR IF IND [HEM] AMDRAW COMPREHENSIVE METABOLIC PANEL [CHEM] AMDRAW Pending Orders 01/07/17 23:19 BLOOD CULTURE [BC] Routine 01/08/17 06:05 ANTI NUCLEAR ANTIBODY [SEND] Routine BLOOD CULTURE [BC] Routine COCCIDIOIDES ANTIBODY [SEND] Routine HISTOPLASMA ANTIBODY, SERUM [SEND] Routine IGA [IMMUNOGLOBULIN A] [SEND] Urgent 01/08/17 10:45 Famotidine in Saline, Iso-Osm [Pepcid Injection] 20 mg IV BID 01/08/17 11:28 proMETHazine HCL [Phenergan] 12.5 mg PO Q6H PRN 01/09/17 17:43 Normal Saline [Sodium Chloride 0.9% 1000 ml] 1,000 ml IV CONT 01/09/17 17:49 NPO After midnight 0000 01/09/17 18:05 Activity: Ambulate with Assist TID Activity: Up to Chair TID 01/09/17 23:08 Neurological Checks [id number] Telemetry monitoring CONTINUOUS TELE 01/09/17 23:28 Implement Seizure Precautions . 01/10/17 09:00 LORazepam [Ativan] 1 mg IV ONCE@0900 01/10/17 Breakfast Nothing By Mouth [DIET] 01/11/17 05:00 Cardiac Enzymes [CKMB] [CHEM] AMDRAW Cardiac Enzymes [CREATINE KINASE] [CHEM] AMDRAW Cardiac Enzymes [TROPONIN I] [CHEM] AMDRAW MAGNESIUM [CHEM] AMDRAW Labs on day of discharge: Labs from last 24 hours 01/10/17 01/09/17 06:05 06:10 WBC 9.5 RBC 4.37 Hgb 11.0 L Hct 34.3 L MCV 78.4 L MCH 25.1 L MCHC 32.0 RDW 14.0 Plt Count 305 MPV 7.9 Neutrophils % 91.7 H Lymphocytes % 6.9 L Eosinophils % 0.0 Basophils % 0.0 Neutrophils # 8.7 H Lymphocytes # 0.7 L Monocytes 1.4 L Monocytes # 0.1 L Eosinophils # 0.0 Basophils # 0.0 Sodium 142 Potassium 4.4 Chloride 114 H Carbon Dioxide 24 BUN 14 Creatinine 0.7 GFR Calculation > 60 Glucose 133 H Calcium 7.9 L Total Bilirubin 0.3 AST 17 ALT 30 Alkaline Phosphatase 48 Total Protein 6.4 Albumin 3.3 L Albumin/Globulin Ratio 1.1 RPR Nonreactive Hep Bs Antigen Negative Preliminary micro results at discharge 01/08/17 06:05 Blood Culture - Preliminary Blood NO GROWTH TO DATE - Impressions 31 yo lady, h/o stroke related to OCP's 12 years ago with seizure, well until last week vague abdominal pain, negative work up in [place], admitted to [facility] with abdominal pain and possible vasculitis, now with worsening pain and a generalized sz as well continued partial complex seizures. Note new LR palsy left. Currently no imaging but liased wiht Dr. Moulton at [facility] and patient will be admitted to [facility] 4S and MRI/EEG with Neuro consult. Fu YOANDY/IgA and biopsy. IM: Discharge Physical Exam - I&O/Vital Signs I&O: Intake & Output 01/09/17 01/10/17 01/10/17 21:59 05:59 13:59 Intake Total 820 2492 Output Total 150 275 200 Balance 670 2217 -200 Weight 127.5 kg Intake: IV 195 Right Hand 1951 Oral 820 540 Output: Urine 150 275 200 Other: Urine Appearance Clear Clear Hematuria Urine Color Yellow Yellow Dark Christina [place] Christina Voiding Method Toilet Toilet Toilet Vital Signs: Last Vital Signs Temp 36.8 C 01/10/17 06:56 Pulse 66 01/10/17 06:56 Resp 14 01/10/17 06:56 BP 121/67 01/10/17 06:56 Pulse Ox 94 01/10/17 06:56 Oxygen Flow Rate 2 Oxygen Delivery Method Nasal Cannula - Constitutional General appearance: Present: morbidly obese - Eye Eye exam: Absent: EOMI (left lateral rectus palsy) - ENT ENT exam: Present: mucous membranes moist - Respiratory Respiratory exam: Present: clear. Absent: rales - Cardiovascular Cardiovascular exam: Present: RRR. Absent: systolic murmur - GI/Abdominal GI/Abdominal exam: Present: normal bowel sounds, tenderness (generalized). Absent: organomegaly - Extremities Exam Extremities exam: Absent: calf tenderness, edema, tenderness - Skin Skin exam: Present: other
[2017-01-10] MEDS ORDERED: LORazepam 2 MG/ML INJ IV SCH (09:00)
[2017-01-10] MEDS: HYDROmorphone HCL 1 MG/ML SYR IV PRN (09:30)
[2017-01-10] MEDS: ONDANSETRON HCL 4 MG/2 ML VIAL IV PRN (10:11)
== END 2017-01-10 09:02 | disposition short-term general hospital (02) ==
LOC: ER 22:53 → IN 01-08 03:13
PROVIDERS: ADMIT Obstetrics & Gynecology; ATTEND Hospitalist
DX: N92.0 Excessive and frequent menstruation with regular cycle (principal); R10.2 Pelvic and perineal pain; R21 Rash and other nonspecific skin eruption; R80.9 Proteinuria, unspecified; A60.00 Herpesviral infection of urogenital system, unspecified; Z86.73 Personal history of transient ischemic attack (TIA), and cerebral infarction without residual deficits; F43.12 Post-traumatic stress disorder, chronic
CPT/HCPCS: 36415; 74177; 80048; 80053; 80076; 81001; 82784; 83605; 83690; 84443; 84703; 85025; 85610; 86039; 86140; 86141; 86592; 86635; 86698; 87040; 87077; 87086; 87340; 96361; 96365; 96375; 99285; A0425; A0427; A4217; G0378; J1170; J1885; J2060; J2405; J2550; J2930; J7030; Q0163